=== PATIENT | female | born 1975 | race Caucasian/White ===

== ENCOUNTER → 2016-12-16 | Outpatient (CLI) | payer BC ==
[~2016-12-16] MED LIST: NOMEDS *
[2016-12-16 14:02] LABS: LYMPH # 1.1 K/mm3 (0.7-4.5)
[2016-12-16 14:03] LABS: HEMOGLOBIN 10.6 g/dL (12.2-16.2)
[2016-12-16 15:01] LABS: BUN 16 mg/dL (7-18); GFR (ESTIMATED) 80 ML/MIN (59-)
== END ==
LOC: LAB 13:28
PROVIDERS: Physician Assistant
DX: Z00.00 Encounter for general adult medical examination without abnormal findings (principal)

== ENCOUNTER → 2017-10-27 | Outpatient (CLI) | payer BC ==
--- NOTE | 2017-10-31 10:37 | RADIOLOGY REPORT PS360 ---
MRI-LOW EXT ANY JOINT W/WO-RT MRI of the right ankle CLINICAL INDICATION: Sharp pain laterally, history of cysts RIGHT GANGLION CYST ORDERING PHYSICIAN: RUBIO MILLER DPM PATIENT AGE: 42 years TECHNIQUE: Multiplanar multiecho sequences are performed without and with contrast. COMPARISON: No bony abdomen eyes are evident. No fracture or dislocation. No enhancing lesions. No tendinous abnormalities. A marker is placed along the anterior medial aspect of the ankle joint is just medial to the tibialis anterior tendon area there is no evidence of a cystic area of the tibialis anterior. No abnormal enhancement in this region. There is a small ankle joint effusion. A small amount fluid is also present posterior to the talocalcaneal joint with some minimal extension into the soft tissues at this region measuring up to 8 mm. No abnormal enhancement of this area. IMPRESSION: 1. Small ankle joint effusion with a small amount of fluid posterior to the posterior aspect of the talocalcaneal joint. 2. No abnormal enhancement. No evidence of ganglion cyst of the ankle tendons
--- NOTE | 2017-10-31 10:49 | RADIOLOGY REPORT PS360 ---
MRI-LOW EXT [facility] W/WORT CLINICAL INDICATION: Right-sided foot pain, pain laterally. History of cyst aspiration RIGHT GANGLION CYST ORDERING PHYSICIAN: RUBIO MILLER DPM PATIENT AGE: 42 years TECHNIQUE: Routine multiplanar multiecho sequences are performed without and with contrast. A marker is placed at area of pain and palpable abnormality. COMPARISON: None FINDINGS: A multilocular cystic lesion measuring 3.3 cm longitudinal, 1.3 cm thick, and up to 1.8 cm transverse is noted along the dorsal aspect of the foot between the mid and proximal aspect of the first and second metatarsals. There is no bony involvement or bony expansion. The cyst is more at the centered distally along the dorsal aspect of the second metatarsal and may originate from the extensor digitorum longus of the second metatarsal. There is a extra ossicle noted at the base of the first and second metatarsal dorsally. This lesion does not demonstrate contrast enhancement and is consistent with a ganglion cyst. A small amount fluid is present in the inner tarsal region and tarsometatarsal junction of the second and third cuneiform. IMPRESSION: 1. Multilocular 3 cm cystic lesion along the dorsum of the foot between the mid and proximal aspect of the first and second metatarsals as described above and may originate from the extensor hallucis longus of the second metatarsal consistent with a ganglion cyst.
== END ==
LOC: RAD 10-18 13:00
DX: M67.471 Ganglion, right ankle and foot (principal)
CPT/HCPCS: A9576

== ENCOUNTER → 2017-11-03 | Outpatient (CLI) | payer BC ==
--- NOTE | 2017-11-06 13:58 | RADIOLOGY REPORT PS360 ---
DIG MAMM-SCREEN MARK W/CAD ORDERING PHYSICIAN : YONI WEEMS PATIENT AGE: 42 years GENDER: Female COMPARISON: No previous studies for comparison. Baseline exam HISTORY:No hormones no new complaints noncontributory family history. Baseline study TECHNIQUE: Std CC & MLO images were obtained. R2 CAD reviewed. FINDINGS: . No dominant mass nor significant suspicious calcifications in either breast. There is scattered areas of what appear to be minimal fibroglandular densities. Do not appear to be a significance but would encourage follow-up in one year this patient Minimal prominent bladder elements bilaterally RIGHT BREAST:... Areas of mild asymmetric density density on one view seem to dissipate for the most part on another view LEFT BREAST: To small groupings Grouping dense round [Dermal calcifications noted at the superior left breast. Some with central lucency labeled X . Benign dermal calcifications inferior medial left breast. grouping of small similar dense benign-appearing calcifications deep breast, towards inferior mammary fold. These Benign-appearing calcifications labeled Y & can be followed in one year. Vague density most compatible intramammary node with some central lucency at its lateral aspect of measuring 9 mm x 4.5 mm. This is labeled Z. One year follow-up IMPRESSION: No significant appearing findings. Benign appearing calcifications and minor benign-appearing areas of density bilaterally Would recommend bilateral follow-up not over one year further confirm stability BI-RADS CATEGORY: 2_Benign RECOMMENDED FOLLOWUP: 12M 12 MONTH FOLLOW-UP (A letter has been sent to the patient regarding results of the study.)
== END ==
LOC: RAD 08:30
DX: Z12.31 Encounter for screening mammogram for malignant neoplasm of breast (principal)
CPT/HCPCS: G0202